=== PATIENT | male | born 1995 ===

== ENCOUNTER 2018-01-29 19:35 | Emergency (ER) | payer OTHER ==
[2018-01-29 20:01] VITALS: BP 118/83
--- NOTE | 2018-01-29 21:04 | UC ---
Complaint Male HPI - HPI Summary HPI Summary: 22 y/o female presents to the urgent care requesting STD screening. pt report mild frequency and burning on urination since yesterday. he noticed a mild clear penile discharge yesterday which resolved today. he has been drinking a lot of water. He had Hx of chlamydia last year and was Tx and it completely resolved. Pt denies lower back pain, flank pain, SOB,fever, penile discharge or pain, abdominal pain, N/v/D. - History of Current Complaint Chief Complaint: UCGU Stated Complaint: STI TESTING Time Seen by Provider: 01/29/18 20:23 Hx Obtained From: Patient Onset/Duration: Gradual Onset, Lasting Days - 2 days, Still Present, Worse Since - today Timing: Lasting Seconds Severity Initially: Mild Severity Currently: Mild Pain Intensity: 3 Pain Scale Used: 0-10 Numeric Location: None - burning sensation on urination Character: Burning Aggravating Factor(s): Voiding Alleviating Factor(s): Nothing Associated Signs And Symptoms: Positive: Negative - Risk Factors Testicular Torsion: Negative - Allergies/Home Medications Allergies/Adverse Reactions: Allergies Allergy/AdvReac Type Severity Reaction Status Date / Time cephalexin [From Keflex] Allergy SKIN Verified 01/29/18 20:01 REACTION/RAUL BREWER TYPE SYMPTOMS Home Medications: Home Medications Amphetamine/Dextroamph ER(NF) [Adderal XR (NF)] 10 mg PO DAILY 01/29/18 [ History Confirmed 01/29/18] Cetirizine* [ZyrTEC 10 MG TAB*] 10 mg PO DAILY 01/29/18 [History Confirmed 01/29] PMH/Surg Hx/FS Hx/Imm Hx Previously Healthy: Yes Respiratory History: Asthma - controlled - Surgical History Surgical History: Yes Surgery Procedure, Year, and Place: WISDOM TEETH - Family History Known Family History: Positive: Hypertension, Diabetes - Social History Occupation: Employed Full-time Lives: With Family Alcohol Use: Weekly Alcohol Amount: TWICE/WEEK Substance Use Type: None Smoking Status (MU): Never Smoked Tobacco Review of Systems All Other Systems Reviewed And Are Negative: Yes Constitutional: Positive: Negative Skin: Positive: Negative Eyes: Positive: Negative ENT: Positive: Negative Respiratory: Positive: Negative Cardiovascular: Positive: Negative Gastrointestinal: Positive: Negative Genitourinary: Positive: Dysuria, Frequency, Other - penile discharge clear only one time Motor: Positive: Negative Neurovascular: Positive: Negative Musculoskeletal: Positive: Negative Neurological: Positive: Negative Psychological: Positive: Negative Is Patient Immunocompromised?: No Physical Exam - Summary Physical Exam Summary: VITAL SIGNS: Reviewed. GENERAL: Patient is a well developed and nourished male who is sitting comfortable in the examining table. Patient is not in any acute respiratory distress. HEAD AND FACE: No signs of trauma. No ecchymosis, hematomas or skull depressions. No sinus tenderness. EYES: PERRLA, EOMI x 2, No injected conjunctiva, clear watery eyes, no nystagmus. No photophobia. EARS: Hearing grossly intact. Ear canals and tympanic membranes are within normal limits. MOUTH: pharynx with no erythema, no exudates,no palatal petechiae. no B/L tonsillar enlargement Uvula in midline. NECK: Supple, trachea is midline, no lymphadenopathy, no JVD, no carotid bruit, no c-spine tenderness, neck with full ROM. CHEST: Symmetric, no tenderness at palpation LUNGS: Clear to auscultation bilaterally. No wheezing or crackles. CVS: Regular rate and rhythm, S1 and S2 present, no murmurs or gallops appreciated. ABDOMEN: Soft, non-tender. No signs of distention. No rebound no guarding, and no masses palpated. Bowel sounds are normal. BACK:no scoliosis or lesions, non tender to palpation, No B/L CVA tenderness : pt decline exam since he denies rash or penile discharge. EXTREMITIES: FROM in all major joints, no edema, no cyanosis or clubbing. NEURO: Alert and oriented x 3. No acute neurological deficits. Speech is normal and follows commands. SKIN: Dry and warm Triage Information Reviewed: Yes Vital Signs: Initial Vital Signs Temp 98.3 F 01/29/18 19:57 Pulse 70 01/29/18 19:57 Resp 16 01/29/18 19:57 BP 118/83 01/29/18 19:57 Pulse Ox 100 01/29/18 19:57 Complaint Male Course/Dx - Course Course Of Treatment: 22 y/o female presents to the urgent care requesting STD screening. pt report mild frequency and burning on urination since yesterday. he noticed a mild clear penile discharge yesterday which resolved today. he has been drinking a lot of water. He had Hx of chlamydia last year and was Tx and it completely resolved. Pt denies lower back pain, flank pain, SOB,fever, penile discharge or pain, abdominal pain, N/v/D. Hx obtained. PE WNL, Pt decline exam since he denies rash or penile discharge. UA ordered:negative. 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 Also labs ordered for HIV , herpes, Hep B and C and syphilis. Pt decline prophilactic treatment and he will rather wait for the result. Pt Rx Pyridium PO to alleviate Dysuria symptoms and Advised to increase fluid intake. Pt will be notified for further treatment. Pt advised If symptoms do not improve to return to the urgent care or f/u with PCP. Pt understood and agreed. Left the clinic ambulating. - Differential Dx/Diagnosis Differential Diagnosis/HQI/PQRI: Epididymitis, Ureteral Calculi, Urinary Tract Infection, Other - std's Provider Diagnosis: Screening examination for STD (sexually transmitted disease), Dysuria Discharge - Sign-Out/Discharge Documenting (check all that apply): Patient Departure - D/c home All imaging exams completed and their final reports reviewed: No Studies - Discharge Plan Condition: Stable Disposition: HOME Prescriptions: Phenazopyridine TAB* [Pyridium 100 mg TAB*] 100 mg PO TID #6 tab Patient Education Materials: Sexually Transmitted Diseases (ED), Dysuria (ED) Referrals: Lillie Cox NP [Primary Care Provider] - 3 Days Additional Instructions: 1- Please take Pyridium 100 mg PO TID x 2 days to alleviate urinary symptoms. Increase increase fluid intake. drink cranberry juice. 2-Urine sent to lab to r/o GC/Chlamydia and trichomonas. you will be notified for further treatment. 3- Labs ordered to r/o HIV, Syphilis, Herpes, Hep B and C. you will be notified if any abnormality for further management 4-If symptoms do not improve please return to the urgent care or f/u with PCP in 3 days for further management. - Billing Disposition and Condition Condition: STABLE Disposition: Home
--- NOTE | 2018-02-01 16:41 | UC ---
- Progress Note Progress Note: 02/01/2018 GG/chlamydia= negative. Pt was also seen today at the [facility] and given prophylactic treatment for GC/Chlamydia. w/ Rocephin and Azitromycin No change Minnie Medina Course/Dx - Diagnoses Provider Diagnoses: Screening examination for STD (sexually transmitted disease), Dysuria Discharge - Sign-Out/Discharge Documenting (check all that apply): Patient Departure - D/C home All imaging exams completed and their final reports reviewed: No Studies - Discharge Plan Condition: Stable Disposition: HOME Prescriptions: Phenazopyridine TAB* [Pyridium 100 mg TAB*] 100 mg PO TID #6 tab Patient Education Materials: Sexually Transmitted Diseases (ED), Dysuria (ED) Referrals: Lillie Cox NP [Primary Care Provider] - 3 Days Additional Instructions: 1- Please take Pyridium 100 mg PO TID x 2 days to alleviate urinary symptoms. Increase increase fluid intake. drink cranberry juice. 2-Urine sent to lab to r/o GC/Chlamydia and trichomonas. you will be notified for further treatment. 3- Labs ordered to r/o HIV, Syphilis, Herpes, Hep B and C. you will be notified if any abnormality for further management 4-If symptoms do not improve please return to the urgent care or f/u with PCP in 3 days for further management. - Billing Disposition and Condition Condition: STABLE Disposition: Home
== END 2018-01-29 21:30 | disposition home or self-care (01) ==
LOC: UCEAST 19:35
DX: R30.0 Dysuria (principal); R35.0 Frequency of micturition; Z11.3 Encounter for screening for infections with a predominantly sexual mode of transmission; Z88.1 Allergy status to other antibiotic agents
CPT/HCPCS: 36415; 80074; 81003; 86592; 86694; 86703; 87491; 87591; 87661; 99212; G0463

== ENCOUNTER 2018-02-01 01:49 | Emergency (ER) | payer OTHER ==
[2018-02-01] MEDS ORDERED: cefTRIAXone VIAL(*) 250 MG VIAL IM ONE (02:10)
[2018-02-01] MEDS ORDERED: Azithromycin TAB* 250 MG PO ONE (02:12)
--- NOTE | 2018-02-01 02:35 | ED ---
Back Pain - HPI Summary HPI Summary: This patient is a 22 year old M presenting to [facility] with a chief complaint of left flank pain that he noticed yesterday. The patient rates the pain 4/10 in severity. Patient reports one episode of discharge from his penis. As well as burning with urination for the last 4 days. Patient denies fever. Pt states he is sexually active without protection with one partner. Pt had chlamydia last year, he states the pain feel similar to this. - History of Current Complaint Chief Complaint: EDFlankPain Stated Complaint: FLANK PAIN Time Seen by Provider: 02/01/18 02:03 Hx Obtained From: Patient Onset/Duration: Lasting Days - 1, Still Present Onset/Duration: Still Present Timing: Constant, Lasting Days Back Pain Location: Is Discrete @ Severity Initially: Mild Severity Currently: Mild Pain Intensity: 4 Pain Scale Used: 0-10 Numeric Associated Signs And Symptoms: Positive: Other - burning - Allergies/Home Medications Allergies/Adverse Reactions: Allergies Allergy/AdvReac Type Severity Reaction Status Date / Time cephalexin [From Keflex] Allergy SKIN Verified 01/29/18 20:01 REACTION/RAUL BREWER TYPE SYMPTOMS PMH/Surg Hx/FS Hx/Imm Hx Cardiovascular History: Denies: Hx Congestive Heart Failure, Hx Deep Vein Thrombosis, Hx Hypotension Respiratory History: Denies: Hx Cystic Fibrosis, Hx Pulmonary Embolism, Hx Seasonal Allergies History: Reports: Other Problems/Disorders - chlamydia Psychiatric History: Denies: Hx Oppositional [place] Disorder - Surgical History Surgery Procedure, Year, and Place: WISDOM TEETH Infectious Disease History: No Infectious Disease History: Reports: Hx Shingles Denies: Traveled Outside the [place] in Last 30 Days - Family History Known Family History: Positive: Hypertension, Diabetes - Social History Alcohol Use: Weekly Alcohol Amount: TWICE/WEEK Substance Use Type: Reports: None Smoking Status (MU): Never Smoked Tobacco Review of Systems Negative: Fever Positive: burning, flank pain All Other Systems Reviewed And Are Negative: Yes Physical Exam - Summary Physical Exam Summary: VITAL SIGNS: Reviewed. GENERAL: Patient is a well-developed and nourished male who is lying comfortable in the stretcher. Patient is not in any acute respiratory distress. HEAD AND FACE: No signs of trauma. No ecchymosis, hematomas or skull depressions. No sinus tenderness. EYES: PERRLA, EOMI x 2, No injected conjunctiva, no nystagmus. EARS: Hearing grossly intact. Ear canals and tympanic membranes are within normal limits. MOUTH: Oropharynx within normal limits. NECK: Supple, trachea is midline, no adenopathy, no JVD, no carotid bruit, no c- spine tenderness, neck with full ROM. CHEST: Symmetric, no tenderness at palpation LUNGS: Clear to auscultation bilaterally. No wheezing or crackles. CVS: Regular rate and rhythm, S1 and S2 present, no murmurs or gallops appreciated. ABDOMEN: Soft, non-tender. No signs of distention. No rebound no guarding, and no masses palpated. Bowel sounds are normal. EXTREMITIES: FROM in all major joints, no edema, no cyanosis or clubbing. NEURO: Alert and oriented x 3. No acute neurological deficits. Speech is normal and follows commands. SKIN: Dry and warm Triage Information Reviewed: Yes Vital Signs On Initial Exam: Initial Vitals Temp Pulse Resp BP Pulse Ox 97.5 F 74 16 145/82 100 02/01/18 01:50 02/01/18 01:50 02/01/18 01:50 02/01/18 01:50 02/01/18 01:50 Vital Signs Reviewed: Yes Diagnostics - Vital Signs Vital Signs Temp Pulse Resp BP Pulse Ox 02/01/18 01:50 97.5 F 74 16 145/82 100 - Laboratory Lab Statement: Any lab studies that have been ordered have been reviewed, and results considered in the medical decision making process. Back Pain Course/Dx - Course Assessment/Plan: This patient is a 22 year old M presenting to [facility] with a chief complaint of left flank pain that he noticed yesterday. The patient rates the pain 4/10 in severity. Patient reports one episode of discharge from his penis. As well as burning with urination for the last 4 days. Patient denies fever. Pt states he is sexually active without protection with one partner. Pt had chlamydia last year. Dx dysuria. UA obtained. In the ED course the patient was given Zithromax, rocpehin, and lidocaine. Patient will be discharged and follow up from PCP. The patient is agreeable with this plan. - Diagnoses Provider Diagnoses: Dysuria Discharge - Sign-Out/Discharge Documenting (check all that apply): Patient Departure - Discharge Plan Condition: Stable Disposition: HOME Patient Education Materials: Dysuria (ED) Referrals: Lillie Cox NP [Primary Care Provider] - Additional Instructions: RETURN TO THE EMERGENCY DEPARTMENT FOR CHANGING OR WORSENING SYMPTOMS - Attestation Statements Document Initiated by Scribe: Yes Documenting Scribe: Jose Antonio Parr Provider For Whom Scribe is Documenting (Include Credential): Asad Anton MD Scribe Attestation: Jose Antonio Fabian , scribed for Asad Anton MD on 02/01/18 at 0422. Status of Scribe Document: Ready
[2018-02-01 03:06] LABS: Urine Appearance Clear; Urine Blood Negative (Negative); Urine Color Colorless; Urine Ketones Negative (Negative); Urine Protein Negative (Negative); Urine Specific Gravity 1.002 (1.010-1.030); Urine Urobilinogen Negative (Negative)
[2018-02-01] MEDS ORDERED: Lidocaine 1%* 5 ML VIAL ONE (03:09)
[2018-02-01 04:39] VITALS: BP 126/74
== END 2018-02-01 04:40 | disposition home or self-care (01) ==
LOC: ED 01:49
DX: R30.0 Dysuria (principal); Z88.1 Allergy status to other antibiotic agents
CPT/HCPCS: 81003; 87491; 87591; 96372; 99282; A9270-GY; J0696

== ENCOUNTER 2018-09-28 18:24 | Emergency (ER) | payer OTHER ==
--- NOTE | 2018-09-28 18:48 | UC ---
Complaint Male HPI - HPI Summary HPI Summary: 23 yo male presents with burning during urination for the past 2 days. He tells me that he had sexual intercourse with a new female partner about 1.5 weeks ago. He was wearing a condom, but is concerned that he "caught" something. He has had urethritis in the past and states this feels the same. He is requesting testing for GC/C. Denies fever, chills, abdominal pain, n/v, flank pain, hematuria, penile discharge, lesions, testicular pain. He does not want other STD testing today. He is unsure if his partner had/has any symptoms. - History of Current Complaint Chief Complaint: UCGU Stated Complaint: STD TESTING Time Seen by Provider: 09/28/18 18:47 Hx Obtained From: Patient Onset/Duration: Sudden Onset Severity Initially: Mild Severity Currently: Mild Pain Intensity: 3 Pain Scale Used: 0-10 Numeric - Allergies/Home Medications Allergies/Adverse Reactions: Allergies Allergy/AdvReac Type Severity Reaction Status Date / Time cephalexin [From Keflex] Allergy SKIN Verified 09/28/18 18:38 REACTION/RAUL BREWER TYPE SYMPTOMS Home Medications: Home Medications FLUoxetine* [PROzac*] 20 mg PO DAILY 09/28/18 [History Confirmed 09/28/18] PMH/Surg Hx/FS Hx/Imm Hx - Additional Past Medical History Additional PMH: ADHD Psychological History: Anxiety - Surgical History Surgical History: Yes Surgery Procedure, Year, and Place: WISDOM TEETH - Family History Known Family History: Positive: Hypertension, Diabetes - Social History Alcohol Use: Weekly Alcohol Amount: TWICE/WEEK Substance Use Type: None Smoking Status (MU): Never Smoked Tobacco Review of Systems All Other Systems Reviewed And Are Negative: Yes Constitutional: Positive: Negative Skin: Positive: Negative Respiratory: Positive: Negative Cardiovascular: Positive: Negative Gastrointestinal: Positive: Negative Genitourinary: Positive: Dysuria Neurological: Positive: Negative Psychological: Positive: Negative Physical Exam - Summary Physical Exam Summary: GENERAL: NAD. WDWN. No pain distress. SKIN: No rashes, sores, lesions, or open wounds. NECK: Supple. Nontender. No lymphadenopathy. CHEST: CTAB. No r/r/w. No accessory muscle use. Breathing comfortably and in no distress. CV: RRR. Without m/r/g. Pulses intact. Cap refill <2seconds ABDOMEN: Soft. NTTP. No distention or guarding. No CVA tenderness. Bowel sounds present NEURO: Alert. PSYCH: Age appropriate behavior. Triage Information Reviewed: Yes Vital Signs: Initial Vital Signs Temp 98.4 F 09/28/18 18:33 Pulse 60 09/28/18 18:33 Resp 16 09/28/18 18:33 BP 127/73 09/28/18 18:33 Pulse Ox 99 09/28/18 18:33 Vital Signs Reviewed: Yes Complaint Male Course/Dx - Course Course Of Treatment: UA negative. He declined genital exam today as he states he has no visible symptoms. He was tested for GC/C and elected to have treatment today. He was given ceftriaxone 250mg and azithromycin 1gm for his symptoms and will let him know about his test results. - Differential Dx/Diagnosis Provider Diagnosis: Dysuria Discharge - Sign-Out/Discharge Documenting (check all that apply): Patient Departure All imaging exams completed and their final reports reviewed: No Studies - Discharge Plan Condition: Stable Disposition: HOME Patient Education Materials: Chlamydia (ED), Gonorrhea (ED) Referrals: Lillie Cox NP [Primary Care Provider] - Additional Instructions: If you develop a fever, shortness of breath, chest pain, new or worsening symptoms - please call your PCP or go to the ED immediately. You were tested and treated for gonorrhea and chlamydia in the clinic this evening. - Billing Disposition and Condition Condition: STABLE Disposition: Home
[2018-09-28] MEDS ORDERED: cefTRIAXone VIAL(*) 250 MG VIAL IM ONE (18:54)
[2018-09-28] MEDS ORDERED: Lidocaine 1% MPF ** 5 ML VIAL IM ONE (18:54)
[2018-09-28] MEDS ORDERED: Azithromycin TAB* 250 MG PO ONE (18:54)
[2018-09-28 21:07] VITALS: BP 127/73
[2018-09-30 12:01] LABS: Neisseria gonorrhoeae (GC) RNA Negative (Negative)
== END 2018-09-28 19:28 | disposition home or self-care (01) ==
LOC: UCEAST 18:24
DX: R30.0 Dysuria (principal); F90.9 Attention-deficit hyperactivity disorder, unspecified type
CPT/HCPCS: 81002; 87491; 87591; 96372; 99212; A9270-GY; G0463; J0696